=== PATIENT | female | born 1960 | race Caucasian/White ===

== ENCOUNTER 2017-06-04 23:33 | Emergency (ER) | payer OTHER ==
[2017-06-04 23:44] VITALS: BP 136/91; PULSE 89; TEMP 97.7; BMI 19.5
[2017-06-05] MEDS ORDERED: ALBUTEROL SO4 2.5/IPRATROPIUM 0.5 INH SOL 3 ML VIAL.NEB. NEB ONE ×2 (00:23→00:26)
[2017-06-05] MEDS ORDERED: predniSONE 20 MG TABLET (UD) PO ONE (00:24)
[2017-06-05] MEDS ORDERED: predniSONE 20 MG TABLET (UD) ONE (00:26)
--- NOTE | 2017-06-05 00:27 | PDOC ---
History of Present Illness - General Chief Complaint: Respiratory Stated Complaint: UPPER RESPIRATORY INFECTION X 1 MONTH Time Seen by Provider: 06/04/17 23:36 - History of Present Illness Initial Comments: This 56-year-old woman with a lifelong history of asthma and current smoker (1 pack per day) presents with a few week history of intermittent productive cough , nasal congestion and difficulty breathing. No reported fever. She has been seen by urgent care twice (patient does not have a PMD) and was started on antibiotic course during her second visit (azithromycin Z-Jani which completed yesterday). Tonight, the patient felt short of breath after mild exertion; she did not report wheezing but used albuterol nebulizer at home and felt better. Past History - Past Medical History Allergies/Adverse Reactions: Allergies Allergy/AdvReac Type Severity Reaction Status Date / Time No Known Allergies Allergy Verified 06/04/17 23:37 Home Medications: Ambulatory Orders Albuterol Sulfate Inhaler - [Ventolin Hfa Inhaler -] 1 - 2 inh PO QID 06/04/17 Albuterol Sulfate Inhaler - [Ventolin Hfa Inhaler -] 1 - 2 inh PO QID #1 inhaler 06/05/17 Prednisone [Deltasone] 40 mg PO DAILY #8 tablet 06/05/17 Asthma: Yes COPD: No - Suicide/Smoking/Psychosocial Hx Smoking History: Current every day smoker Have you smoked in the past 12 months: Yes Number of Cigarettes Smoked Daily: 20 Information on smoking cessation initiated: Yes Hx Alcohol Use: No Drug/Substance Use Hx: No Substance Use Type: None *Physical Exam - Vital Signs Last Vital Signs Temp Pulse Resp BP Pulse Ox 97.7 F 89 18 136/91 98 06/04/17 23:38 06/04/17 23:38 06/04/17 23:38 06/04/17 23:38 06/04/17 23:38 Progress Note - Progress Note Progress Note: Clinical presentation consistent with chronic bronchitis/asthma exacerbation. Although the patient had a steroid inhaler prescribed by urgent care, she apparently is not using it. She has not been on any oral steroids course since the start of her respiratory infection. We will start prednisone 40 mg daily for 5 days; first dose given here in the emergency room. Patient referred to Dr. Pisano for PMD. Meanwhile, she return to the emergency room if she has worsening shortness of breath/persistent wheezing/ high fever *DC/Admit/Observation/Transfer Diagnosis at time of Disposition: Acute bronchitis Qualifiers: Bronchitis organism: unspecified organism Qualified Code(s): J20.9 - Acute bronchitis, unspecified Asthma exacerbation Qualifiers: Asthma severity: mild Asthma persistence: intermittent Qualified Code(s): J45.21 - Mild intermittent asthma with (acute) exacerbation - Discharge Dispostion Disposition: HOME Condition at time of disposition: Stable - Prescriptions Prescriptions: Albuterol Sulfate Inhaler - [Ventolin Hfa Inhaler -] 1 - 2 inh PO QID #1 inhaler Prednisone [Deltasone] 40 mg PO DAILY #8 tablet - Referrals - Patient Instructions Printed Discharge Instructions: DI for Asthma -- Adult, Smoking Cessation Additional Instructions: Continue inhaler as prescribed; drink plenty of fluids Avoid smoking Consider using humidifier, especially in bedroom at night Prednisone 40 mg a day for the next 4 days; take with food Follow-up with Dr. Pisano; call office tomorrow to arrange appointment within 4 -5 days - Post Discharge Activity
== END 2017-06-05 01:07 | disposition home or self-care (01) ==
LOC: FER 23:33
PROC: 3E0F7GC Introduction of Other Therapeutic Substance into Respiratory Tract, Via Natural or Artificial Opening (ICD-10-PCS; principal; 2017-06-04)
DX: J45.21 Mild intermittent asthma with (acute) exacerbation (principal); J20.9 Acute bronchitis, unspecified; F17.210 Nicotine dependence, cigarettes, uncomplicated
CPT/HCPCS: 99281-25